=== PATIENT | female | born 1965 | race Caucasian/White ===

== ENCOUNTER 2016-12-22 05:31 | Day surgery (SDC) | payer OTHER ==
[~2016-12-22] VITALS: Ht 160 cm; Wt 69.0 kg
[2016-12-22 06:50] VITALS: Ht 160 cm; Wt 69.0 kg
[2016-12-22] MEDS ORDERED: OMEP20CA16 PO (06:58)
[2016-12-22] MEDS ORDERED: LEVO150T67 PO (06:58)
[2016-12-22] MEDS ORDERED: RANI150T9 PO (06:58)
[2016-12-22 07:18] VITALS: BP 134/65; PULSE 42; RESP 20
[2016-12-22] MEDS ORDERED: MIDAZOLAM 1 MG/ML 2 ML INJ ONE (07:44)
[2016-12-22] MEDS ORDERED: FENTAnyl 50 MCG/ML VIAL ONE (07:44)
[2016-12-22 08:05] VITALS: BP 104/63; PULSE 44; RESP 12
--- NOTE | 2017-01-20 12:54 | GILP ---
DATE OF PROCEDURE: 01/07/2017 PROCEDURE PERFORMED: Esophagogastroduodenoscopy and biopsy. SURGEON: Maggy Maldonado MD. PREOPERATIVE DIAGNOSIS: 1. Abdominal pain. 2. Chronic heart burn. POSTOPERATIVE DIAGNOSIS: 1. Gastroesophageal reflux disease. 2. Gastritis with erosions. 3. Gastric mucosal biopsies were taken for Helicobacter pylori test. INDICATION FOR PROCEDURE: Ms. Agnes Mcrae is a 51-year-old female patient who had upper abdominal pain and chronic heartburn not responding to therapy. The patient was scheduled for endoscopic examination for further evaluation. The procedure and possible complications were well explained to the patient. The patient understood and consented to the procedure. DESCRIPTION OF PROCEDURE: The gastroscope was carefully introduced into the esophagus and under direct vision it was advanced into the stomach and to the pylorus into the duodenal bulb and the descending duodenum. Findings esophagus, the patient had gastroesophageal reflux disease. Stomach, she had gastritis with erosions. Gastric mucosal biopsies were taken for Helicobacter pylori test. The duodenum was normal. The patient tolerated the procedure very well. There were no complications from the procedure. At the end of procedure she was awake with stable vital signs and she was discharged home in the care of her family. IMPRESSION: 1. Gastroesophageal reflux disease. 2. Gastritis with erosions. 3. Gastric mucosal biopsies were taken for Helicobacter pylori test. PLAN: 1. [____] 40 mg p.o. q.a.m. 2. Zantac 300 mg p.o. q.h.s. 3. Await Helicobacter pylori test report. Dictated By: MD CESAR Bourgeois/renita/satish /Document#: [id number] CC: Maggy Maldonado MD;*[facility]*
== END 2016-12-22 10:22 | disposition home or self-care (01) ==
LOC: GIL 05:31
PROVIDERS: ATTEND Internal Medicine Gastroenterology
DX: K21.9 Gastro-esophageal reflux disease without esophagitis (principal); K29.60 Other gastritis without bleeding
CPT/HCPCS: 43239; 87081; J2250; J3010